=== PATIENT | female | born 1955 | race Caucasian/White ===

== ENCOUNTER 2020-05-14 13:28 | Outpatient (CLI) | payer SELFPAY ==
--- NOTE | 2020-05-15 14:46 | ONC CON_ITS ---
Dr. Blake New Patient Note Patient: Yue Moran Unit #: [id number]: 1955 Dicatated By: Eriberto Blake M.D.Date of Visit: May 14, 2020 Onc MED New Patient/Consult Referring Physician: Dr. Romana Robb M.D. History of Present Illness: Ms. Yue Moran, is a 65-year-old female who first noticed mass in her left breast in August 2019 and said did not pay much attention to it as she was moving from [place] to [place] and in November 2019 she felt mass in her left breast again and decided to get help and underwent mammogram in January 2020 which showed BI-RADS 4 abnormality, for which on March 20, 2020 she underwent ultrasound-guided left breast biopsy which showed papillary neoplasm ER NC strong staining, CK 5/6- Myerson negative, p63 negative. So pathologist could not tell whether this lesion was benign or malignant from the needle core biopsies so patient was evaluated by Dr. Romana Robb and on April 04, 2020 she underwent ultrasound-guided excisional biopsy of left breast mass and final pathology report came back encapsulated papillary carcinoma breast with invasion, maximum tumor focus of invasive carcinoma was 0.5 cm. Background breast parenchyma demonstrates multifocal area of ductal carcinoma in situ. Invasive carcinoma and DCIS involves inked edge of the specimen focally., pT1b, On April 29, 2020 patient underwent left breast quadrant, lumpectomy with margin evaluation and final pathology report showed no residual encapsulated papillary carcinoma or invasive carcinoma identified margins were clear and 0 out of 15 lymph nodes showed metastatic disease .pN0 Patient is nulliparous and postmenopausal since age 43. Family history significant for history of breast cancer in her sister who at age 58. Patient is a former smoker, take alcohol occasionally.. Denies any nipple discharge, denies any discharge or tenderness around recently done left breast lumpectomy or axillary lymph node dissection. Denies any history of weight loss denies any history of bony pains. Denies any history of jaundice. Past Medical History: Ms. Prater medical history consists of anxiety, depression, and osteoarthritis. Past Surgical History: Ms. Prater surgical/procedural history consists of breast biopsy and left breast lumpectomy. Medications: This patient reports not taking external medications. Allergies: No Known Allergies. Social History: Ms. Moran is single and she is retired. Ms. Moran quit smoking 15 years ago but had smoked for 20 years. She drinks occasionally. Ms. Moran reports the following support systems: lives with spouse, significant other, family, or friends, lives in own house, supportive family/friends willing to assist with needs, and adequate transportation available for expected visits. Her diet consists of regular meals. She indicates her activity level as: regular exercise. Family History: Ms. Moran's mother at age 83: hypertension, and stroke. Ms. Moran's father at age 83: myocardial infarction, and coronary artery disease, and type II diabetes. Ms. Moran has 1 sister who is : breast cancer. Review Of Symptoms: Review of Systems is not available for this patient. Vital Signs: Performed on May 14, 2020 14:10: 0, 30.59 (HIGH), 1.86 sq.m, 64.00 in, 97 %, 67 /min, 18 /min, 133/60 mm(hg), 97.4 F (LOW), and 178.2 lbs (HIGH). Performance Status: 0 - Fully active, able to carry on all predisease activities without restrictions. (ECOG) Physical Examination: ENMT - No mouth sores no thrush, no jaundice, Respiratory - Lungs are clear, Cardiovascular - Regular rate and rhythm of heart, Abdomen - Soft, bowel sounds present, Extremities - No visible edema or rash. Left breast exam shows well-healed surgical scar no discharge noted. Lab/Imaging: Most recent lab results are not available for this patient. 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 With DCIS in the background. pT1b,, grade 1, 0 out of 15 positive lymph nodes pN0, ER 99% positive, NC 99% positive, HER-2/katelynn negative, Ki-67 25% high Plan: Discussed with patient regarding her disease status and further recommendations, patient has stage I, encapsulated papillary carcinoma which is a favorable pathology subtype, with ER NC strongly positive and HER-2/katelynn negative. But Ki-67 was elevated at 25%, so at this point, we will proceed with prognostic profiling with Oncotype DX score and in the meantime, start her on adjuvant therapy with Arimidex 1 mg p.o. daily for 5 years along with vitamin D and calcium supplement all the side effects possible benefits associated with adjuvant hormone therapy were discussed including but not limited to hot flashes, generalized musculoskeletal discomfort, fatigue, emotional changes were mentioned further teaching done by chemotherapy nurse, will obtain approval from her insurance and in the meantime , we will refer her to radiation oncology for evaluation for Left breast postlumpectomy radiation therapy. Patient will return to clinic in 1 month with CBC CMP and by that time will have her Oncotype DX score results back and if it shows low risk, then will continue with Arimidex 1 mg p.o. daily for 5 years on the other hand if it shows high score e.g. high risk then will discuss with patient regarding role of adjuvant chemotherapy followed by hormonal therapy. Patient expressed full understanding and accepted the treatment and plan. As patient has young sister with history of breast cancer we will also consider genetic testing with BRCA 1 and 2 testing. Signed By: Eriberto Blake M.D. <<Signature on File>>
== END 2020-05-14 13:29 | disposition home or self-care (01) ==
LOC: ONCMED 13:43
PROVIDERS: Referring Provider Surgery; Visit Provider Internal Medicine Hematology & Oncology
DX: C50.912 Malignant neoplasm of unspecified site of left female breast (principal); Z17.0 Estrogen receptor positive status [ER+]; F41.9 Anxiety disorder, unspecified; F32.9 Major depressive disorder, single episode, unspecified; M19.90 Unspecified osteoarthritis, unspecified site; Z87.891 Personal history of nicotine dependence; Z80.3 Family history of malignant neoplasm of breast
CPT/HCPCS: 99203

== ENCOUNTER 2020-05-28 13:22 | Outpatient (CLI) | payer SELFPAY ==
--- NOTE | 2020-05-29 10:38 | N.ONRAD NP_ITS ---
Radiation Oncology New Patient Visit Patient: Yue Moran MR#: [id number] : 1955 Age: 65 Sex: Female Dictated by: Dr. Matthew Lee Date of Service: 05/28/2020 Referring Physician(s) : Dr. Romana Robb Primary Site: Lower outer quadrant of left breast Diagnosis: T1aN0 (0/15 lns) encapsulated papillary carcinoma of the breast with invasion. The encapsulated portion of the neoplasm measures 2.8 cm, the largest invasive portion measures 0.5 cm. Status post excisional biopsy ([facility] [place] [facility] 04/04/2020), left breast quadrantectomy and left axillary dissection without sentinel lymph node assessment ([facility] 04/29/2020). Pathology revealed multiple foci of grade 1 invasive carcinoma, the presence of ductal carcinoma in situ, 0/15 involved lymph nodes, ER/OR positive at 99%, HER-2 negative, Ki-67 25%, ultimate margins widely negative, and Oncotype DX score of 0. Armidex initiated 05/2020. Z17.0 - estrogen receptor positive status [er+], Diagnosed 05/14/2020 (active) and C50.912 - malignant neoplasm of unspecified site of left female breast, Diagnosed 05/14/2020 (active). Purpose of Visit: Discuss the role of radiotherapy. History of Present Illness: The patient is a 65-year-old female palpated a non painful mass in her left breast in August 2019. She ultimately sought medical attention and a subsequent mammogram in January 2020 revealed an abnormality in the lower outer quadrant of the left breast. A subsequent biopsy (03/20/2020) revealed papillary neoplasm not otherwise specified, ER/OR strongly staining, CK 5/6, myosin negative, p63 negative. The pathologist recommended an additional excision since papillary carcinoma in situ could not be excluded. On 04/04/2020 Dr. Robb performed an ultrasound-guided excisional biopsy of the lesion in the left breast. Pathology from this revealed encapsulated papillary carcinoma with invasion, the encapsulated portion measured 2.8 cm, multiple foci of grade 1 invasive carcinoma were noted and measured up to 5 mm, the presence of multifocal areas of ductal carcinoma in situ (solid and cribriform type with cancerization of focal lobular units), and both DCIS and invasive carcinoma involved the inked margins. On 04/29/2020 Dr. Robb then performed a left breast lower outer quadrantectomy, left axillary dissection without sentinel lymph node evaluation, and left axillary skin tag excision. Pathology revealed no residual encapsulated papillary carcinoma or invasive carcinoma identified, 15 benign lymph nodes, and a benign compound melanocytic nevus. The patient was referred to Dr. Blake and a subsequent Oncotype DX score was 0. In consultation today, the patient ports that she is healing well, she has no range of motion limitations in her left arm, she has no left arm swelling, and she has no left breast pain. Current Medications: Arimidex. Allergies: No Known Allergies Medical History: - Anxiety, - depression, - osteoarthritis. No history of collagen vascular disease. No previous radiation therapy. Surgical History: Breast biopsy, cyst removed in the back of the head in 2005 and left breast lumpectomy. Family History: Father is at age 83 having experienced coronary artery disease, and myocardial infarction, and type II diabetes. Mother is at age 83 having experienced hypertension, and stroke. Sister is at age 58 having experienced breast cancer. Social History: Last screened on 05/28/2020 - Yes - but has quit for 15 years. Smoked 0.5 packs/day for 20 years (10 pack years). Last screened on 05/28/2020 - Drinks occasionally. Patient indicated access to the following support systems: Adequate transportation available for expected visits, Lives in own house, Lives with spouse, significant other, family, or friends, and Supportive family/friends willing to assist with needs. Patient indicated the following nutritional habits: Regular meals. Patient indicated participation in the following forms of activity: Regular exercise. Current Complaints / Review of Systems: Constitutional - Complains of mild fatigue. Complains of change in weight in which she has gained about 15 lbs. since 2019. Denies lack of appetite, fever and night sweats. Eyes - Denies blurred vision and double vision. ENMT - Complains of tinnitus. Denies dysphagia, ear pain, mouth dryness, stomatitis and altered taste. Neck - Denies neck pain. Integumentary - Denies rash. Breasts - Complains of pain in the left breast and left axilla. Cardiovascular - Denies arrhythmias, chest pain and edema. Respiratory - Denies cough, dyspnea and wheezing. Gastrointestinal - Complains of mild heartburn / dyspepsia which occurs occasionally. Denies abdominal pain, constipation, diarrhea, melena / GI bleeding, nausea and vomiting. Genitourinary (F) - Complains of nocturia occasionally. Denies dysuria, frequency, urgency, vaginal discharge / bleeding and vaginal spotting. Musculoskeletal - Complains of joint pain in the right hand and left knee and muscle weakness occasionally in the right hand. Denies bone pain. Neurologic - Denies dizziness, abnormal gait and headaches. Endocrine - Denies diabetes, hot flashes and thyroid disease. Hematologic/Lymphatic - Denies tender or enlarged lymph nodes.. Vital Signs: Performed on 05/28/2020 1:51 PM BMI - 30.485 kg/m2 (high), Height - 64.00 in, Weight - 177.6 lbs, Temperature - 98.8 f, Pulse - 81, Respiration - 18, O2 Sat - 98 %, Pain - 0 and BP - 122/ 81 mm(hg). Physical Exam: GENERAL:??? The patient is alert, and in no acute distress. HEENT:??? Head is normocephalic. Face is symmetric. External ocular movements are intact. Sclerae and conjunctivae are non erythematous. Oral cavity:??? The uvula flexes midline, and the tongue does not deviate upon protrusion. The oral cavity and visualized oropharynx are without obvious masses. Nares are patent. NECK:??? Trachea is midline.??? Thyroid is not enlarged by palpation.??? There are no masses in the neck.? LYMPH NODES:??? There is no cervical, supraclavicular, or axillary adenopathy bilaterally. LUNGS:??? Clear to auscultation bilaterally. Respiratory movement is unlabored. HEART:??? Regular rate and rhythm. BREASTS:??? The left breast is smaller than the right breast, there is moderate scar retraction in the lower outer quadrant of the left breast, a well-healed surgical scar is appreciated in the lower outer quadrant of the left breast and left axilla. Cosmesis is considered to be favorable on the treated left breast. There is no physical exam findings consistent with a brewing infection within the left breast, and there is no palpable abnormality in the contralateral breast. ABDOMEN:??? Soft, nontender, without palpable mass.??? No hepatosplenomegaly. Performance Status: 0 - Fully active, able to carry on all predisease activities without restrictions. (ECOG) Pathology: Primary, z17.0 - estrogen receptor positive status [er+], Diagnosed 05/14/2020 (active) and Primary, c50.912 - malignant neoplasm of unspecified site of left female breast, Diagnosed 05/14/2020 (active). Imaging: See HPI Pain assessment: This patient???s pain was personally assessed by me. This patient requires no adjustments to pain medications at this time. Potential Radiation Treatment Side Effects to the breast: The potential side effects associated with radiation treatment listed below were discussed in significant detail with the patient. Risks and side effects related with Radiation Therapy to the Breast: Likely (these side effects occur in 10% or more of patients): Reddening of the skin during treatment and for several weeks following treatment Tanning of the skin lasting months and may be permanent Slightly smaller breast size or change in the way the breast looks Tiredness and weakness during treatment and for several weeks following treatment Swelling of the breast Peeling of the skin in the area treated with radiation Mild pain at the site of radiation treatment requiring over the counter pain relievers Less Likely (these side effects occur in 3-9% of patients): Soreness or tightness in muscles of the chest wall under the treated breast Severe pain at the site of radiation requiring prescription pain relievers Rare but serious (these side effects occur in less than 3% of patients): Cough Difficulty breathing Inflammation of the heart muscle Rib fracture Slight increase in risk for heart disease for patients with cancer in the left breast Risk of developing another cancer Impression/Plan: The patient is a 65-year-old female with a new diagnosis of T1aN0 (0/15 lns) encapsulated papillary carcinoma with invasion of the lower outer quadrant of the left breast. She has been treated with breast conservation therapy which includes a left breast quadrantectomy, and full axillary dissection without sentinel lymph node assessment which revealed 15 benign lymph nodes (Dr Robb). Ultimate postsurgical margins were widely negative, the tumor is ER/OR strongly positive, HER-2 negative, Ki-67 was 25%, Oncotype DX score was 0. The patient has been prescribed endocrine therapy by Dr. Blake. We discussed the treatment goals of radiotherapy, prognosis with and without radiation therapy, radiation treatment logistics, and potential acute and late side effects in detail as described above. The patient verbalized understanding of the risks/benefits of radiotherapy and the patient has agreed to proceed as recommended. I plan to provide a total dose of 42.56 Gy in 16 fractions to the left breast using a deep inspiration breath-hold technique. Given the widely negative surgical margins, a quadrantectomy boost is unnecessary. Per the patient's request secondary to procuring medical insurance, we will begin treatment planning in 3 weeks. The patient has no current evidence of left arm lymphedema and she has a favorable cosmetic result from her breast surgeries. Signed by: Matthew Lee MD 05/29/2020 10:36:25 AM <<Signature on File>> Time spent with patient in face to face contact: 60 minutes. All questions were answered to the patient???s satisfaction. CPT Code: CPT Code:
== END 2020-05-28 13:23 | disposition home or self-care (01) ==
LOC: ONCMED 13:29
PROVIDERS: Visit Provider Radiology Radiation Oncology
DX: C50.512 Malignant neoplasm of lower-outer quadrant of left female breast (principal); Z17.0 Estrogen receptor positive status [ER+]; Z79.811 Long term (current) use of aromatase inhibitors; Z87.891 Personal history of nicotine dependence; Z98.890 Other specified postprocedural states
CPT/HCPCS: 99215

== ENCOUNTER 2020-07-14 05:37 | Outpatient (RCR) | payer SELFPAY ==
--- NOTE | 2020-06-18 | CT_ITS ---
Radiation Therapy Planning CT images; total exam DLP: 509.77 mGy-cm MTDD
--- NOTE | 2020-06-24 16:29 | ONCRAD TMN_ITS ---
Radiation Oncology Weekly Treatment Management Patient: Luisa Turner MR#: [id number] : 1955 Age: 65 Sex: Female Dictated by: Dr. Matthew Lee Date of Service: 06/24/2020 Referring Physician(s) : Dr. Romana Robb Diagnosis: T1aN0 (0/15 lns) encapsulated papillary carcinoma with invasion of the lower outer quadrant of the left breast. She has been treated with breast conservation therapy which included a left breast quadrantectomy, and full axillary dissection without sentinel lymph node assessment which revealed 15 benign lymph nodes (Dr Robb 04/29/2020). Ultimate postsurgical margins were widely negative, the tumor is ER/IL strongly positive, HER-2 negative, Ki-67 was 25%, Oncotype DX score was 0. Arimidex was initiated on 05/[address] Alaniz. Treatment plan: 42.56 Gy in 16 fractions to the left breast using a deep inspiration breath-hold technique. Given the widely negative surgical margins, a quadrantectomy boost is unnecessary. Radiotherapy to date: Course: [facility] 2019, Treatment Site: L Breast 16FX, Ref. ID: [id number], Energy: 6X, Dose/Fx (cGy): 266, #Fx: , Dose Correction (cGy): 0, Total Dose (cGy): 266, Start Date: 06/24/2020, Elapsed Days: 0 Reason for visit: The patient is being seen today as part of their regularly scheduled weekly on treatment visits to assess for acute toxicities from radiotherapy. Interim History: She has no complaints. Current Medications: Arimidex. Allergies: No Known Allergies Vital Signs: Performed on 06/24/2020 4:15 PM BMI - 30.622 kg/m2 (high), Height - 64.00 in, Weight - 178.4 lbs, Temperature - 97.6 f, Pulse - 61, Respiration - 18, O2 Sat - 97 %, Pain - 0, Fatigue - 0 and BP - 136/ 80 mm(hg). Physical Exam: Appears stable, no skin erythema or desquamation. Performance Status: 0 - Fully active, able to carry on all predisease activities without restrictions. (ECOG) Lab: None pending in Radiation Oncology. Imaging: Radiation therapy imaging related to accurate target localization (i.e. KV, MV and CBCT) was reviewed. Appropriate changes, if any, were made to ensure treatment accuracy. Plan: The patient is tolerating therapy reasonably well. Radiotherapy will continue as planned. CPT: 82024 Signed by: Dr. Matthew Lee 06/24/2020 4:28:01 PM
--- NOTE | 2020-07-01 13:36 | ONCRAD TMN_ITS ---
Radiation Oncology Weekly Treatment Management Patient: Luisa Turner MR#: [id number] : 1955 Age: 65 Sex: Female Dictated by: Dr. Matthew Lee Date of Service: 07/01/2020 Referring Physician(s) : Dr. Romana Robb Diagnosis: T1aN0 (0/15 lns) encapsulated papillary carcinoma with invasion of the lower outer quadrant of the left breast. She has been treated with breast conservation therapy which included a left breast quadrantectomy, and full axillary dissection without sentinel lymph node assessment which revealed 15 benign lymph nodes (Dr Robb 04/29/2020). Ultimate postsurgical margins were widely negative, the tumor is ER/MO strongly positive, HER-2 negative, Ki-67 was 25%, Oncotype DX score was 0. Arimidex was initiated on 05/[address] Alaniz. Treatment plan: 42.56 Gy in 16 fractions to the left breast using a deep inspiration breath-hold technique. Given the widely negative surgical margins, a quadrantectomy boost is unnecessary. Radiotherapy to date: Course: [facility] 2019, Site: L Breast 16FX, Ref. ID: [id number], Energy: 6X, Dose/Fx (cGy): 266, #Fx: , Dose Correction (cGy): 0, Total Dose (cGy): 1,596, Start Date: 06/24/2020, Elapsed Days: 7 Reason for visit: The patient is being seen today as part of their regularly scheduled weekly on treatment visits to assess for acute toxicities from radiotherapy. Interim History: The patient reports no acute side effects from treatment thus far. She has occasional sharp pains in her treated left breast which self resolved. He continues to have night sweats from endocrine therapy. Current Medications: Arimidex. Allergies: No Known Allergies Current Complaints/Review of Systems: Constitutional - Complains of night sweats occasional early mornings. Denies lack of appetite, fatigue, fever, rigors / chills and change in weight. Integumentary - Denies bruising, dry skin, rash and urticaria. Breasts - Complains of pain left breast off and on, sharp pains that are short in duration. Denies breast masses, nipple discharge and nipple inversion. Vital Signs: Performed on 07/01/2020 1:15 PM BMI - 30.76 kg/m2 (high), Height - 64.00 in, Weight - 179.2 lbs, Temperature - 98.9 f, Pulse - 78, Respiration - 17, O2 Sat - 97 %, Pain - 0, Fatigue - 5 and BP - 118/ 69 mm(hg). Physical Exam: Appears stable, no skin erythema or desquamation. Performance Status: 0 - Fully active, able to carry on all predisease activities without restrictions. (ECOG) Lab: None pending in Radiation Oncology. Imaging: Radiation therapy imaging related to accurate target localization (i.e. KV, MV and CBCT) was reviewed. Appropriate changes, if any, were made to ensure treatment accuracy. Plan: The patient is tolerating therapy reasonably well. Radiotherapy will continue as planned. CPT: 41540 Signed by: Dr. Matthew Lee 07/01/2020 1:36:19 PM
--- NOTE | 2020-07-08 16:11 | ONCRAD TMN_ITS ---
Radiation Oncology Weekly Treatment Management Patient: Luisa Turner MR#: [id number] : 1955 Age: 65 Sex: Female Dictated by: Dr. Matthew Lee Date of Service: 07/08/2020 Referring Physician(s) : Dr. 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 She has been treated with breast conservation therapy which included a left breast quadrantectomy, and full axillary dissection without sentinel lymph node assessment which revealed 15 benign lymph nodes (Dr Robb 04/29/2020). Ultimate postsurgical margins were widely negative, the tumor is ER/WV strongly positive, HER-2 negative, Ki-67 was 25%, Oncotype DX score was 0. Arimidex was initiated on 05/[address] Alaniz. Treatment plan: 42.56 Gy in 16 fractions to the left breast using a deep inspiration breath-hold technique. Given the widely negative surgical margins, a quadrantectomy boost is unnecessary. Radiotherapy to date: Course: [facility] 2019, Treatment Site: L Breast 16FX, Ref. ID: [id number], Energy: 6X, Dose/Fx (cGy): 266, #Fx: , Dose Correction (cGy): 0, Total Dose (cGy): 2,660, Start Date: 06/24/2020, Elapsed Days: 14 Reason for visit: The patient is being seen today as part of their regularly scheduled weekly on treatment visits to assess for acute toxicities from radiotherapy. Interim History: The patient reports no current skin irritation, she has mild fatigue, and occasional sharp shooting pains in the left breast which self resolve. Current Medications: Arimidex. Allergies: No Known Allergies Current Complaints/Review of Systems: Constitutional - Complains of mild fatigue. Denies lack of appetite, fever and night sweats. ENMT - Denies dysphagia. Integumentary - Has no redness to the left breast or axilla. Breasts - Complains of pain in the left breast occasionally that is a sharp shooting pain. Cardiovascular - Denies chest pain and edema. Respiratory - Denies cough, dyspnea and wheezing. Vital Signs: Performed on 07/08/2020 1:31 PM BMI - 30.828 kg/m2 (high), Height - 64.00 in, Weight - 179.6 lbs, Temperature - 98.1 f, Pulse - 66, Respiration - 18, O2 Sat - 96 %, Pain - 0 and BP - 133/ 73 mm(hg). Physical Exam: There is no skin erythema within the left axilla or left breast. Lungs are clear to auscultation bilaterally. Performance Status: 0 - Fully active, able to carry on all predisease activities without restrictions. (ECOG) Lab: None pending in Radiation Oncology. Imaging: Radiation therapy imaging related to accurate target localization (i.e. KV, MV and CBCT) was reviewed. Appropriate changes, if any, were made to ensure treatment accuracy. Plan: The patient is tolerating therapy reasonably well. Radiotherapy will continue as planned. CPT: 62392 Signed by: Dr. Matthew Lee 07/08/2020 4:11:02 PM
== END 2020-07-14 23:59 | disposition home or self-care (01) ==
LOC: ONCMED 05:37
PROVIDERS: Visit Provider Radiology Radiation Oncology
DX: Z51.0 Encounter for antineoplastic radiation therapy (principal); C50.512 Malignant neoplasm of lower-outer quadrant of left female breast; Z17.0 Estrogen receptor positive status [ER+]; Z79.811 Long term (current) use of aromatase inhibitors
CPT/HCPCS: 77280; 77295; 77300; 77334; 77336; 77412; 77417

== ENCOUNTER 2020-08-13 05:33 | Outpatient (RCR) | payer SELFPAY ==
--- NOTE | 2020-07-15 15:55 | ONCRAD TMN_ITS ---
Radiation Oncology Weekly Treatment Management Patient: Luisa Turner MR#: [id number] : 1955 Age: 65 Sex: Female Dictated by: Dr. Matthew Lee Date of Service: 07/15/2020 Referring Physician(s) : Dr. 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 She has been treated with breast conservation therapy which included a left breast quadrantectomy, and full axillary dissection without sentinel lymph node assessment which revealed 15 benign lymph nodes (Dr Robb 04/29/2020). Ultimate postsurgical margins were widely negative, the tumor is ER/WA strongly positive, HER-2 negative, Ki-67 was 25%, Oncotype DX score was 0. Arimidex was initiated on 05/[address] Alaniz. Treatment plan: 42.56 Gy in 16 fractions to the left breast. Given the widely negative surgical margins, a quadrantectomy boost is unnecessary. Radiotherapy to date: Course: [facility] 2019, Treatment Site: L Breast 16FX, Ref. ID: [id number], Energy: 6X, Dose/Fx (cGy): 266, #Fx: 15 / 16, Dose Correction (cGy): 0, Total Dose (cGy): 3,990, Start Date: 06/24/2020, Elapsed Days: 21 Reason for visit: The patient is being seen today as part of their regularly scheduled weekly on treatment visits to assess for acute toxicities from radiotherapy. Interim History: The patient reports sharp occasional pains to her left breast. Aside from that, she has no complaints. Current Medications: Arimidex. Allergies: No Known Allergies Current Complaints/Review of Systems: Constitutional - Complains of lack of appetite off and on. Complains of mild fatigue. Complains of night sweats which occur occasionally. Denies fever. ENMT - . Integumentary - Has no redness to left breast. Breasts - Complains of pain in the left breast which is a quick sharp pain that comes and goes. Cardiovascular - Denies chest pain. Respiratory - Denies cough, dyspnea and wheezing. Vital Signs: Performed on 07/15/2020 1:28 PM BMI - 30.931 kg/m2 (high), Height - 64.00 in, Weight - 180.2 lbs, Temperature - 98.6 f, Pulse - 66, Respiration - 16, O2 Sat - 96 %, Pain - 0 and BP - 132/ 67 mm(hg). Physical Exam: Moderate erythema is appreciated. Performance Status: 0 - Fully active, able to carry on all predisease activities without restrictions. (ECOG) Lab: None pending in Radiation Oncology. Imaging: Radiation therapy imaging related to accurate target localization (i.e. KV, MV and CBCT) was reviewed. Appropriate changes, if any, were made to ensure treatment accuracy. Plan: The patient is tolerating therapy reasonably well. Radiotherapy will continue as planned. CPT: 22768 Signed by: Dr. Matthew Lee 07/15/2020 3:52:47 PM
[2020-08-13 14:19] LABS: Basophils % 0.5 %; Eosinophils # 0.2 10^3/uL (0.0-0.8); Eosinophils % 2.3 %; Hematocrit 48.8 % (37.0-47.0); Hemoglobin 15.4 g/dL (11.5-15.3); Lymphocytes % 31.3 %; Mean Corpuscular HGB Conc 31.6 g/dL (30.0-36.0); Mean Corpuscular Hemoglobin 29.8 pg (28.0-34.0); Mean Corpuscular Volume 94.6 fL (81-99); Mean Platelet Volume 10.6 fL (7.4-10.4); Monocytes # 0.6 10^3/uL (0.2-0.9); Monocytes % 9.3 %; Neutrophils # 3.66 10^3/uL (1.8-7.7); Neutrophils % 56.4 %; Nucleated Red Blood Cells % 0 %; Platelet Count 239 10^3/cmm (130-400); Red Blood Count 5.16 10^6/uL (4.1-5.3); Red Cell Distribution Width 12.1 % (12.1-15.1); White Blood Count 6.5 10^3/uL (4.0-10.0)
[2020-08-13 14:22] LABS: Alanine Aminotransferase 44 U/L (0-33); Albumin Level 4.4 g/dL (3.5-5.2); Alkaline Phosphatase 85 IU/L (35-105); Anion Gap 13.6 (5-19); Aspartate Amino Transferase 33 U/L (0-32); Blood Urea Nitrogen 12 mg/dL (8-23); Carbon Dioxide 27 mmol/L (22-29); Chloride 102 mmol/L (98-107); Globulin 2.7 g/dL (1.3-4.6); Glomerular Filtration Rate 84.5 mL/min (90-130); Glucose 97 mg/dL (65-115); Osmolality Calculated 286 mOsm/kg (285-295); Potassium 4.6 mmol/L (3.5-5.1); Sodium 138 mmol/L (136-145); Total Bilirubin 0.3 mg/dL (0.15-1.2); Total Protein 7.1 g/dL (6.6-8.7)
--- NOTE | 2020-08-13 15:47 | ONC FU_ITS ---
Dr. Blake follow up note Patient: Yue Mroan Unit #: [id number]: 1955 Dicatated By: Eriberto Blake M.D.Date of Visit:Aug 13, 2020 Onc Med Follow-up/Prog Note History of Present Illness: Ms. Yue Moran, is a 65-year-old female who first noticed mass in her left breast in August 2019 and said did not pay much attention to it as she was moving from [facility] to [place] and in November 2019 she felt mass in her left breast again and decided to get help and underwent mammogram in January 2020 which showed BI-RADS 4 abnormality, for which on March 20, 2020 she underwent ultrasound-guided left breast biopsy which showed papillary neoplasm ER AK strong staining, CK 5/6- Myerson negative, p63 negative. So pathologist could not tell whether this lesion was benign or malignant from the needle core biopsies so patient was evaluated by Dr. Romana Robb and on April 04, 2020 she underwent ultrasound-guided excisional biopsy of left breast mass and final pathology report came back encapsulated papillary carcinoma breast with invasion, maximum tumor focus of invasive carcinoma was 0.5 cm. Background breast parenchyma demonstrates multifocal area of ductal carcinoma in situ. Invasive carcinoma and DCIS involves inked edge of the specimen focally., pT1b, On April 29, 2020 patient underwent left breast quadrant, lumpectomy with margin evaluation and final pathology report showed no residual encapsulated papillary carcinoma or invasive carcinoma identified margins were clear and 0 out of 15 lymph nodes showed metastatic disease .pN0 Oncotype DX done on May 27, 2020 showed recurrence score 0, risk of distant recurrence at 9 years about 3% with aromatase inhibitor and no role of chemotherapy. completed postlumpectomy left breast radiation therapy on July 16, 2020 Started on Arimidex 1 mg p.o. daily For 5 years along with vitamin D and calcium supplement on May 14, 2020 Patient is nulliparous and postmenopausal since age 43. Family history significant for history of breast cancer in her sister who at age 58. Patient is a former smoker, take alcohol occasionally.. Denies any nipple discharge, denies any discharge or tenderness around recently done left breast lumpectomy or axillary lymph node dissection. Denies any history of weight loss denies any history of bony pains. Denies any history of jaundice. Came for follow-up, denies any specific complaints, no fever chills, no nausea or vomiting, no diarrhea constipation, patient tolerated postlumpectomy radiation therapy to her left breast without any problem, tolerating Arimidex well but with expected side effect e.g. occasionally hot flashes Medications: Arimidex 1 Tablet (of 1 mg) Oral daily Allergies: No Known Allergies. Review of Systems: Review of Systems is not available for this patient. Vital Signs: Performed on Aug 13, 2020 15:02 Height - 64.00 in Weight - 177.2 lbs (LOW) BSA - 1.86 sq.m BMI - 30.42 (HIGH) Temperature - 99.0 F (HIGH) Pulse - 91 /min Respiration - 18 /min BP - 132/72 mm(hg) O2 Sat - 97 % Pain - 0 Performance Status: 0 - Fully active, able to carry on all predisease activities without restrictions. (ECOG) Physical Examination: Respiratory - Lungs are clear, Cardiovascular - Regular rate and rhythm of heart, Gastrointestinal - Soft, bowel sounds present, Extremities - No visible edema. Lab/Imaging: Most recent lab results are not available for this patient. 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 With DCIS in the background. pT1b,, grade 1, 0 out of 15 positive lymph nodes pN0, Oncotype DX score was 0, BRCA 1 and 2 was not tested as patient is self-pay and she declined ER 99% positive, AK 99% positive, HER-2/katelynn negative, Ki-67 25% high Started on Arimidex 1 mg p.o. daily for 5 years along with vitamin D/calcium on May 14, 2020 Completed postlumpectomy left breast radiation therapy on July 16, 2020 Plan: Discussed with patient regarding her labs white blood count 6.5 hemoglobin 15.4 hematocrit 48.8 platelets 239,000 CMP within normal limits Clinically, she is doing well with no new signs symptoms, tolerating Arimidex well but with expected side effects e.g. occasionally hot flashes. She has completed postlumpectomy radiation therapy to the left breast without any problem.She will continue with Arimidex 1 mg p.o. daily along with vitamin D and calcium for total 5 years. Return to clinic in 4 months for evaluation. Signed By: Eriberto Blake M.D. <<Signature on File>>
== END 2020-08-13 23:59 | disposition home or self-care (01) ==
LOC: ONCMED 05:33
PROVIDERS: Visit Provider Internal Medicine Hematology & Oncology
DX: Z51.0 Encounter for antineoplastic radiation therapy (principal); C50.512 Malignant neoplasm of lower-outer quadrant of left female breast; Z17.0 Estrogen receptor positive status [ER+]; L58.0 Acute radiodermatitis; Y84.2 Radiological procedure and radiotherapy as the cause of abnormal reaction of the patient, or of later complication, without mention of misadventure at the time of the procedure; Z92.3 Personal history of irradiation; Z79.811 Long term (current) use of aromatase inhibitors
CPT/HCPCS: 77336; 77412; 77417; 80053; 85025

== ENCOUNTER 2020-11-20 13:26 | Outpatient (CLI) | payer SELFPAY ==
--- NOTE | 2020-11-20 14:56 | ONC FU_ITS ---
Dr. Blake follow up note Patient: Yue Moran Unit #: [id number]: 1955 Dicatated By: Eriberto Blake M.D.Date of Visit:Nov 20, 2020 Onc Med Follow-up/Prog Note History of Present Illness: Ms. Yue Moran, is a 65-year-old female who first noticed mass in her left breast in August 2019 and said did not pay much attention to it as she was moving from [facility] to [place] and in November 2019 she felt mass in her left breast again and decided to get help and underwent mammogram in January 2020 which showed BI-RADS 4 abnormality, for which on March 20, 2020 she underwent ultrasound-guided left breast biopsy which showed papillary neoplasm ER KS strong staining, CK 5/6- Myerson negative, p63 negative. So pathologist could not tell whether this lesion was benign or malignant from the needle core biopsies so patient was evaluated by Dr. Romana Robb and on April 04, 2020 she underwent ultrasound-guided excisional biopsy of left breast mass and final pathology report came back encapsulated papillary carcinoma breast with invasion, maximum tumor focus of invasive carcinoma was 0.5 cm. Background breast parenchyma demonstrates multifocal area of ductal carcinoma in situ. Invasive carcinoma and DCIS involves inked edge of the specimen focally., pT1b, On April 29, 2020 patient underwent left breast quadrant, lumpectomy with margin evaluation and final pathology report showed no residual encapsulated papillary carcinoma or invasive carcinoma identified margins were clear and 0 out of 15 lymph nodes showed metastatic disease .pN0 Oncotype DX done on May 27, 2020 showed recurrence score 0, risk of distant recurrence at 9 years about 3% with aromatase inhibitor and no role of chemotherapy. completed postlumpectomy left breast radiation therapy on July 16, 2020 Started on Arimidex 1 mg p.o. daily For 5 years along with vitamin D and calcium supplement on May 14, 2020 Patient is nulliparous and postmenopausal since age 43. Family history significant for history of breast cancer in her sister who at age 58. Patient is a former smoker, take alcohol occasionally.. Denies any nipple discharge, denies any discharge or tenderness around recently done left breast lumpectomy or axillary lymph node dissection. Denies any history of weight loss denies any history of bony pains. Denies any history of jaundice. Completed post left breast lumpectomy radiation therapy on July 16, 2020. Came for follow-up, denies any specific complaints, no fever chills, no nausea or vomiting, no diarrhea or constipation, occasionally hot flashes otherwise tolerating Arimidex well along with vitamin D and calcium supplement. Patient has completed post left breast lumpectomy radiation therapy in July 2020 Medications: Arimidex 1 Tablet (of 1 mg) Oral daily Allergies: No Known Allergies. Review of Systems: Review of Systems is not available for this patient. Vital Signs: Performed on Nov 20, 2020 13:52 Height - 64.00 in Weight - 181.2 lbs (HIGH) BSA - 1.88 sq.m BMI - 31.10 (HIGH) Temperature - 98.1 F (LOW) Pulse - 77 /min Respiration - 18 /min BP - 149/65 mm(hg) (HIGH) O2 Sat - 98 % Pain - 0 Performance Status: 0 - Fully active, able to carry on all predisease activities without restrictions. (ECOG) Physical Examination: Respiratory - Lungs are clear to auscultation, Cardiovascular - Regular rate and rhythm of heart, Gastrointestinal - Soft, bowel sounds present, Extremities - No visible edema. Lab/Imaging: Test performed on Aug 13, 2020 13:50 Sodium 138 mmol/L Potassium 4.6 mmol/L Chloride 102 mmol/L CO2 27 mmol/L Anion Gap 13.6 BUN 12 mg/dL Creatinine 0.7 mg/dL Cr Clearance (Est) 104.38 mL/min eGFR 84.5 mL/min Glucose 97 mg/dL Osmolality - Calculated 286 mOsm/kg Calcium 10.0 mg/dL Protein, Total 7.1 g/dL Albumin 4.4 g/dL Globulin 2.7 g/dL Bilirubin, Total 0.3 mg/dL ALT (SGPT) 44 U/L AST (SGOT) 33 U/L Alkaline Phosphatase 85 IU/L WBC 6.5 10 3/uL RBC 5.16 10 6/uL HGB 15.4 g/dL HCT 48.8 % MCV 94.6 fL MCH 29.8 pg MCHC 31.6 g/dL RDW 12.1 % Platelet Count 239 10 3/cmm MPV 10.6 fL Neutrophils 3.66 10 3/uL Lymphocytes 2.0 10 3/uL Monocytes 0.6 10 3/uL Eosinophils 0.2 10 3/uL Basophils 0.0 10 3/uL Neutrophil % 56.4 % Lymphocyte % 31.3 % Monocyte % 9.3 % Eosinophil % 2.3 % Basophils % 0.5 % NRBC % 0 % Impression: Encapsulated papillary carcinoma of left breast status post quadrant lumpectomy with left axillary lymph node dissection done on April 04, 2020 and reexcision surgery for positive surgical margin done on April 29, 2020 which showed no evidence of residual disease so final pathology report showed encapsulated papillary carcinoma breast with invasion, 0.5 cm invasive focus. With DCIS in the background. pT1b,, grade 1, 0 out of 15 positive lymph nodes pN0, Oncotype DX score was 0, BRCA 1 and 2 was not tested as patient is self-pay and she declined ER 99% positive, KS 99% positive, HER-2/katelynn negative, Ki-67 25% high Started on Arimidex 1 mg p.o. daily for 5 years along with vitamin D/calcium on May 14, 2020 Completed postlumpectomy left breast radiation therapy on July 16, 2020 Plan: Discussed with patient regarding her disease status, question concerns, patient is tolerating Arimidex well with expected side effects like occasionally hot flashes. She has no signs suggestive of recurrence of disease so we will continue with same and then she will return to clinic in 4 months with CBC CMP and a follow-up mammogram Signed By: Eriberto Blake M.D. <<Signature on File>>
== END 2020-11-20 13:27 | disposition home or self-care (01) ==
LOC: ONCMED 13:30
PROVIDERS: Visit Provider Internal Medicine Hematology & Oncology
DX: C50.912 Malignant neoplasm of unspecified site of left female breast (principal); Z17.0 Estrogen receptor positive status [ER+]; Z79.811 Long term (current) use of aromatase inhibitors
CPT/HCPCS: 99214

== ENCOUNTER 2021-03-17 10:10 | Outpatient (CLI) | payer OTHER, SELFPAY ==
--- NOTE | 2021-03-17 10:17 | MM_ITS ---
WS: [id number] DIAGNOSTIC BILATERAL DIGITAL MAMMOGRAM WITH CAD HISTORY: HX OF BREAST CA COMPARISON: 03/12/2020 TECHNIQUE: Bilateral craniocaudad, mediolateral oblique, and mediolateral views are submitted. Comput er aided detection utilized. Breast composition: There are scattered areas of fibroglandular density. Postsurgical changes are not ed in the lateral LEFT breast near 3:00. There is distortion of the soft tissue postsurgical clips. P reviously described mass has been removed. No recurrent mass or adenopathy. RIGHT breast is negative. MM/[place] [id number] IMPRESSION: BI-RADS: 2-Benign FOLLOW UP: 1 Year Follow-up
== END 2021-03-17 10:11 | disposition home or self-care (01) ==
LOC: RADSHAW 10:14
PROVIDERS: PCP Family Medicine; Visit Provider Internal Medicine Hematology & Oncology
DX: Z85.3 Personal history of malignant neoplasm of breast (principal)
CPT/HCPCS: 77066

== ENCOUNTER 2021-03-24 05:45 | Outpatient (CLI) | payer OTHER, SELFPAY ==
[2021-03-24 14:07] LABS: Basophils % 0.5 %; Eosinophils # 0.2 10^3/uL (0.0-0.8); Eosinophils % 2.4 %; Hematocrit 48.5 % (37.0-47.0); Hemoglobin 15.6 g/dL (11.5-15.3); Lymphocytes # 1.9 10^3/uL (0.8-4.8); Lymphocytes % 29.3 %; Mean Corpuscular HGB Conc 32.2 g/dL (30.0-36.0); Mean Corpuscular Volume 96.2 fL (81-99); Mean Platelet Volume 10.4 fL (7.4-10.4); Monocytes # 0.6 10^3/uL (0.2-0.9); Monocytes % 9.6 %; Neutrophils # 3.81 10^3/uL (1.8-7.7); Nucleated Red Blood Cells % 0 %; Platelet Count 193 10^3/cmm (130-400); Red Blood Count 5.04 10^6/uL (4.1-5.3); Red Cell Distribution Width 12.5 % (12.1-15.1); White Blood Count 6.6 10^3/uL (4.0-10.0)
[2021-03-24 14:20] LABS: Alanine Aminotransferase 45 U/L (0-33); Albumin Level 4.2 g/dL (3.5-5.2); Alkaline Phosphatase 103 IU/L (35-105); Anion Gap 12.2 (5-19); Aspartate Amino Transferase 31 U/L (0-32); Blood Urea Nitrogen 11 mg/dL (8-23); Calcium 9.5 mg/dL (8.5-10.5); Carbon Dioxide 32 mmol/L (22-29); Chloride 103 mmol/L (98-107); Globulin 2.3 g/dL (1.3-4.6); Glomerular Filtration Rate 84.2 mL/min (90-130); Glucose 116 mg/dL (65-115); Osmolality Calculated 296 mOsm/kg (285-295); Potassium 4.2 mmol/L (3.5-5.1); Sodium 143 mmol/L (136-145); Total Bilirubin 0.3 mg/dL (0.15-1.2); Total Protein 6.5 g/dL (6.6-8.7)
--- NOTE | 2021-03-24 16:55 | ONC FU_ITS ---
Dr. Blake follow up note Patient: Yue Moran Unit #: [id number]: 1955 Dicatated By: Eriberto Blake M.D.Date of Visit:March 24, 2021 Onc Med Follow-up/Prog Note History of Present Illness: Ms. Yue Moran, is a 66-year-old female who first noticed mass in her left breast in August 2019 and said did not pay much attention to it as she was moving from [facility] to [place] and in November 2019 she felt mass in her left breast again and decided to get help and underwent mammogram in January 2020 which showed BI-RADS 4 abnormality, for which on March 20, 2020 she underwent ultrasound-guided left breast biopsy which showed papillary neoplasm ER AK strong staining, CK 5/6- Myerson negative, p63 negative. So pathologist could not tell whether this lesion was benign or malignant from the needle core biopsies so patient was evaluated by Dr. Romana Robb and on April 04, 2020 she underwent ultrasound-guided excisional biopsy of left breast mass and final pathology report came back encapsulated papillary carcinoma breast with invasion, maximum tumor focus of invasive carcinoma was 0.5 cm. Background breast parenchyma demonstrates multifocal area of ductal carcinoma in situ. Invasive carcinoma and DCIS involves inked edge of the specimen focally., pT1b, On April 29, 2020 patient underwent left breast quadrant, lumpectomy with margin evaluation and final pathology report showed no residual encapsulated papillary carcinoma or invasive carcinoma identified margins were clear and 0 out of 15 lymph nodes showed metastatic disease .pN0 Oncotype DX done on May 27, 2020 showed recurrence score 0, risk of distant recurrence at 9 years about 3% with aromatase inhibitor and no role of chemotherapy. completed postlumpectomy left breast radiation therapy on July 16, 2020 Started on Arimidex 1 mg p.o. daily For 5 years along with vitamin D and calcium supplement on May 14, 2020 Patient is nulliparous and postmenopausal since age 43. Family history significant for history of breast cancer in her sister who at age 58. Patient is a former smoker, take alcohol occasionally.. Denies any nipple discharge, denies any discharge or tenderness around recently done left breast lumpectomy or axillary lymph node dissection. Denies any history of weight loss denies any history of bony pains. Denies any history of jaundice. Completed post left breast lumpectomy radiation therapy on July 16, 2020. Came for follow-up, denies any specific complaint except chronic pain in her hands and left knee due to arthritis no new bony pains otherwise, tolerating Arimidex well along with vitamin D and calcium supplement, no fever chills, no nausea or vomiting, no diarrhea or constipation Medications: Arimidex 1 Tablet (of 1 mg) Oral daily Allergies: No Known Allergies. Review of Systems: Review of Systems is not available for this patient. Vital Signs: Performed on March 24, 2021 15:52 Height - 64.00 in Weight - 181.8 lbs (HIGH) BSA - 1.88 sq.m BMI - 31.21 (HIGH) Temperature - 97.1 F (LOW) Pulse - 70 /min Respiration - 18 /min BP - 146/59 mm(hg) (HIGH) O2 Sat - 98 % Pain - 0 Fatigue - 0 Performance Status: 0 - Fully active, able to carry on all predisease activities without restrictions. (ECOG) Physical Examination: Respiratory - Lungs are clear to auscultation, Cardiovascular - Regular rate and rhythm of heart, Gastrointestinal - Soft, bowel sounds present, Extremities - No visible edema. Lab/Imaging: Most recent lab results are not available for this patient. 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 With DCIS in the background. pT1b,, grade 1, 0 out of 15 positive lymph nodes pN0, Oncotype DX score was 0, BRCA 1 and 2 was not tested as patient is self-pay and she declined ER 99% positive, AK 99% positive, HER-2/katelynn negative, Ki-67 25% high Started on Arimidex 1 mg p.o. daily for 5 years along with vitamin D/calcium on May 14, 2020 Completed postlumpectomy left breast radiation therapy on July 16, 2020, Follow-up mammogram done on March 17, 2021 shows BI-RADS 2, benign Plan: Discussed with patient regarding her labs white blood count 6.6 hemoglobin 15.6 hematocrit 48.5 platelets 193,000 CMP within normal limits follow-up mammogram done on March 17, 2021 showed BI-RADS 2, benign Clinically, patient doing well with no new signs symptom suggestive of recurrence of disease, tolerating Arimidex/vitamin D/calcium well, her follow-up mammogram shows no abnormality. We will continue with same and she will return to clinic in 4 months with CBC CMP Signed By: Eriberto Blake M.D. <<Signature on File>>
== END 2021-03-24 05:46 | disposition home or self-care (01) ==
LOC: ONCMED 05:49
PROVIDERS: PCP Family Medicine; Visit Provider Internal Medicine Hematology & Oncology
DX: C50.812 Malignant neoplasm of overlapping sites of left female breast (principal); Z17.0 Estrogen receptor positive status [ER+]; Z90.12 Acquired absence of left breast and nipple; Z79.811 Long term (current) use of aromatase inhibitors; E55.9 Vitamin D deficiency, unspecified; E83.51 Hypocalcemia; Z79.899 Other long term (current) drug therapy
CPT/HCPCS: 36415; 80053; 85025; 99214

== ENCOUNTER 2021-08-03 12:25 | Outpatient (CLI) | payer OTHER, SELFPAY ==
[2021-08-03 13:17] LABS: Basophils % 0.4 %; Eosinophils # 0.2 10^3/uL (0.0-0.8); Eosinophils % 2.5 %; Hematocrit 44.9 % (37.0-47.0); Hemoglobin 14.5 g/dL (11.5-15.3); Lymphocytes # 2.5 10^3/uL (0.8-4.8); Mean Corpuscular HGB Conc 32.3 g/dL (30.0-36.0); Mean Corpuscular Hemoglobin 30.6 pg (28.0-34.0); Mean Corpuscular Volume 94.7 fl (81-99); Mean Platelet Volume 10.7 fL (7.4-10.4); Monocytes # 0.7 10^3/uL (0.2-0.9); Monocytes % 10.1 %; Neutrophils # 3.82 10^3/uL (1.8-7.7); Neutrophils % 52.9 %; Nucleated Red Blood Cells % 0 %; Platelet Count 185 10^3/cmm (130-400); Red Blood Count 4.74 10^6/uL (4.1-5.3); Red Cell Distribution Width 13.2 % (12.1-15.1); White Blood Count 7.2 10^3/uL (4.0-10.0)
[2021-08-03 13:28] LABS: Alanine Aminotransferase 53 U/L (0-33); Albumin Level 4.3 g/dL (3.5-5.2); Alkaline Phosphatase 97 IU/L (35-105); Anion Gap 10.2 (5-19); Aspartate Amino Transferase 34 U/L (0-32); Blood Urea Nitrogen 10 mg/dL (8-23); Calcium 9.9 mg/dL (8.5-10.5); Carbon Dioxide 31 mmol/L (22-29); Chloride 104 mmol/L (98-107); Globulin 2.5 g/dL (1.3-4.6); Glomerular Filtration Rate 84.2 mL/min (90-130); Glucose 87 mg/dL (65-115); Osmolality Calculated 290 mOsm/kg (285-295); Potassium 4.2 mmol/L (3.5-5.1); Sodium 141 mmol/L (136-145); Total Bilirubin 0.3 mg/dL (0.15-1.2); Total Protein 6.8 g/dL (6.6-8.7)
--- NOTE | 2021-08-03 14:43 | ONC FU_ITS ---
Dr. Blake follow up note Patient: Yue Moran Unit #: [id number]: 1955 Dicatated By: Eriberto Blake M.D.Date of Visit:Aug 03, 2021 Onc Med Follow-up/Prog Note History of Present Illness: Ms. Yue Moran, is a 66-year-old female who first noticed mass in her left breast in August 2019 and said did not pay much attention to it as she was moving from [facility] [place] to [place] and in November 2019 she felt mass in her left breast again and decided to get help and underwent mammogram in January 2020 which showed BI-RADS 4 abnormality, for which on March 20, 2020 she underwent ultrasound-guided left breast biopsy which showed papillary neoplasm ER PA strong staining, CK 5/6- Myerson negative, p63 negative. So pathologist could not tell whether this lesion was benign or malignant from the needle core biopsies so patient was evaluated by Dr. Romana Robb and on April 04, 2020 she underwent ultrasound-guided excisional biopsy of left breast mass and final pathology report came back encapsulated papillary carcinoma breast with invasion, maximum tumor focus of invasive carcinoma was 0.5 cm. Background breast parenchyma demonstrates multifocal area of ductal carcinoma in situ. Invasive carcinoma and DCIS involves inked edge of the specimen focally., pT1b, On April 29, 2020 patient underwent left breast quadrant, lumpectomy with margin evaluation and final pathology report showed no residual encapsulated papillary carcinoma or invasive carcinoma identified margins were clear and 0 out of 15 lymph nodes showed metastatic disease .pN0 Oncotype DX done on May 27, 2020 showed recurrence score 0, risk of distant recurrence at 9 years about 3% with aromatase inhibitor and no role of chemotherapy. completed postlumpectomy left breast radiation therapy on July 16, 2020 Started on Arimidex 1 mg p.o. daily For 5 years along with vitamin D and calcium supplement on May 14, 2020 Patient is nulliparous and postmenopausal since age 43. Family history significant for history of breast cancer in her sister who at age 58. Patient is a former smoker, take alcohol occasionally.. Denies any nipple discharge, denies any discharge or tenderness around recently done left breast lumpectomy or axillary lymph node dissection. Denies any history of weight loss denies any history of bony pains. Denies any history of jaundice. Completed post left breast lumpectomy radiation therapy on July 16, 2020. Came for follow-up, denies any specific complaints, no fever chills, no nausea or vomiting, no diarrhea constipation, no new bony pains, occasionally hot flashes are discomfort in her hands otherwise tolerating Arimidex well along with vitamin D and calcium Medications: Arimidex 1 Tablet (of 1 mg) Oral daily Allergies: No Known Allergies. Review of Systems: Review of Systems is not available for this patient. Vital Signs: Performed on Aug 03, 2021 14:25 Height - 64.00 in Weight - 181.6 lbs (LOW) BSA - 1.88 sq.m BMI - 31.17 (HIGH) Temperature - 97.6 F (LOW) Pulse - 63 /min Respiration - 18 /min BP - 178/90 mm(hg) (HIGH) O2 Sat - 97 % Pain - 0 Fatigue - 5 Performance Status: 0 - Fully active, able to carry on all predisease activities without restrictions. (ECOG) Physical Examination: Respiratory - Lungs are clear to auscultation, Cardiovascular - Regular rate and rhythm of heart, Gastrointestinal - Soft, bowel sounds present, Extremities - No visible edema or rash. Lab/Imaging: Most recent lab results are not available for this patient. 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 With DCIS in the background. pT1b,, grade 1, 0 out of 15 positive lymph nodes pN0, Oncotype DX score was 0, BRCA 1 and 2 was not tested as patient is self-pay and she declined ER 99% positive, PA 99% positive, HER-2/katelynn negative, Ki-67 25% high Started on Arimidex 1 mg p.o. daily for 5 years along with vitamin D/calcium on May 14, 2020 Completed postlumpectomy left breast radiation therapy on July 16, 2020, Follow-up mammogram done on March 17, 2021 shows BI-RADS 2, benign Plan: Discussed with patient regarding her labs white blood count 7.2 hemoglobin 14.5 hematocrit 44.9 platelets 185,000 CMP within normal limit except ALT 53 compared to 45 earlier AST 34, within normal bilirubin and alk phos Clinically, patient doing well with no new signs symptoms just of recurrence of disease her lab work-up is within normal range except mildly elevated transaminases which could be due to fatty infiltration, will continue to monitor she will return to clinic in 6 months with CBC CMP, If follow-up labs shows persistent or progressive transaminitis, will consider work-up, patient will continue with daily Arimidex along with vitamin D and calcium Signed By: Eriberto Blake M.D. <<Signature on File>>
== END 2021-08-03 12:26 | disposition home or self-care (01) ==
LOC: ONCMED 12:27
PROVIDERS: PCP Family Medicine; Visit Provider Internal Medicine Hematology & Oncology
DX: C50.812 Malignant neoplasm of overlapping sites of left female breast (principal); Z17.0 Estrogen receptor positive status [ER+]; Z90.12 Acquired absence of left breast and nipple; Z79.811 Long term (current) use of aromatase inhibitors; E55.9 Vitamin D deficiency, unspecified; Z79.899 Other long term (current) drug therapy
CPT/HCPCS: 36415; 80053; 85025; 99214

== ENCOUNTER 2022-03-09 12:20 | Outpatient (CLI) | payer MEDICARE, SELFPAY ==
[2022-03-09 13:02] LABS: Basophils % 0.3 %; Eosinophils # 0.1 10^3/uL (0.0-0.8); Eosinophils % 1.8 %; Hematocrit 47.4 % (37.0-47.0); Hemoglobin 15.4 g/dL (11.5-15.3); Lymphocytes # 2.3 10^3/uL (0.8-4.8); Lymphocytes % 32.3 %; Mean Corpuscular HGB Conc 32.5 g/dL (30.0-36.0); Mean Corpuscular Hemoglobin 30.3 pg (28.0-34.0); Mean Corpuscular Volume 93.1 fl (81-99); Mean Platelet Volume 10.9 fL (7.4-10.4); Monocytes # 0.7 10^3/uL (0.2-0.9); Monocytes % 9.4 %; Neutrophils # 3.93 10^3/uL (1.8-7.7); Neutrophils % 55.9 %; Nucleated Red Blood Cells % 0 %; Platelet Count 199 10^3/cmm (130-400); Red Blood Count 5.09 10^6/uL (4.1-5.3); Red Cell Distribution Width 12.3 % (12.1-15.1)
[2022-03-09 13:23] LABS: Alanine Aminotransferase 32 U/L (0-33); Albumin Level 4.5 g/dL (3.5-5.2); Alkaline Phosphatase 110 IU/L (35-105); Anion Gap 11.5 (5-19); Aspartate Amino Transferase 28 U/L (0-32); Blood Urea Nitrogen 12 mg/dL (8-23); Calcium 9.2 mg/dL (8.5-10.5); Carbon Dioxide 29 mmol/L (22-29); Chloride 105 mmol/L (98-107); Globulin 2.3 g/dL (1.3-4.6); Glucose 85 mg/dL (65-115); Osmolality Calculated 291 mOsm/kg (285-295); Potassium 4.5 mmol/L (3.5-5.1); Sodium 141 mmol/L (136-145); Total Bilirubin 0.3 mg/dL (0.15-1.2); Total Protein 6.8 g/dL (6.6-8.7)
--- NOTE | 2022-03-10 10:08 | ONC FU_ITS ---
Dr. Blake follow up note Patient: Yue Moran Unit #: [id number]: 1955 Dicatated By: Eriberto Blake M.D.Date of Visit:Mar 09, 2022 Onc Med Follow-up/Prog Note History of Present Illness: Ms. Yue Moran, is a 67-year-old female who first noticed mass in her left breast in August 2019 and said did not pay much attention to it as she was moving from [facility] to [place] and in November 2019 she felt mass in her left breast again and decided to get help and underwent mammogram in January 2020 which showed BI-RADS 4 abnormality, for which on March 20, 2020 she underwent ultrasound-guided left breast biopsy which showed papillary neoplasm ER AL strong staining, CK 5/6- Myerson negative, p63 negative. So pathologist could not tell whether this lesion was benign or malignant from the needle core biopsies so patient was evaluated by Dr. Romana Robb and on April 04, 2020 she underwent ultrasound-guided excisional biopsy of left breast mass and final pathology report came back encapsulated papillary carcinoma breast with invasion, maximum tumor focus of invasive carcinoma was 0.5 cm. Background breast parenchyma demonstrates multifocal area of ductal carcinoma in situ. Invasive carcinoma and DCIS involves inked edge of the specimen focally., pT1b, On April 29, 2020 patient underwent left breast quadrant, lumpectomy with margin evaluation and final pathology report showed no residual encapsulated papillary carcinoma or invasive carcinoma identified margins were clear and 0 out of 15 lymph nodes showed metastatic disease .pN0 Oncotype DX done on May 27, 2020 showed recurrence score 0, risk of distant recurrence at 9 years about 3% with aromatase inhibitor and no role of chemotherapy. completed postlumpectomy left breast radiation therapy on July 16, 2020 Started on Arimidex 1 mg p.o. daily For 5 years along with vitamin D and calcium supplement on May 14, 2020 Patient is nulliparous and postmenopausal since age 43. Family history significant for history of breast cancer in her sister who at age 58. Patient is a former smoker, take alcohol occasionally.. Denies any nipple discharge, denies any discharge or tenderness around recently done left breast lumpectomy or axillary lymph node dissection. Denies any history of weight loss denies any history of bony pains. Denies any history of jaundice. Completed post left breast lumpectomy radiation therapy on July 16, 2020. Came for follow-up, denies any specific complaints, no fever chills, no nausea or vomiting, no diarrhea constipation, no melena hematochezia, no hemoptysis hematemesis, occasionally hot flashes otherwise tolerating Arimidex/vitamin D/calcium well Medications: Arimidex 1 Tablet (of 1 mg) Oral daily Allergies: No Known Allergies. Review of Systems: Review of Systems is not available for this patient. Vital Signs: Performed on Mar 09, 2022 16:13 Height - 64.00 in Weight - 176.6 lbs (LOW) BSA - 1.86 sq.m BMI - 30.31 (HIGH) Temperature - 97.8 F (LOW) Pulse - 73 /min Respiration - 18 /min BP - 148/80 mm(hg) (HIGH) O2 Sat - 98 % Pain - 0 Fatigue - 4 Performance Status: 0 - Fully active, able to carry on all predisease activities without restrictions. (ECOG) Physical Examination: Respiratory - Lungs are clear to auscultation, Cardiovascular - Regular rate and rhythm of heart, Gastrointestinal - Soft, bowel sounds present, Extremities - No visible edema. Lab/Imaging: Most recent lab results are not available for this patient. 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 With DCIS in the background. pT1b,, grade 1, 0 out of 15 positive lymph nodes pN0, Oncotype DX score was 0, BRCA 1 and 2 was not tested as patient is self-pay and she declined ER 99% positive, AL 99% positive, HER-2/katelynn negative, Ki-67 25% high Started on Arimidex 1 mg p.o. daily for 5 years along with vitamin D/calcium on May 14, 2020 Completed postlumpectomy left breast radiation therapy on July 16, 2020, Follow-up mammogram done on March 17, 2021 shows BI-RADS 2, benign Plan: Discussed with patient regarding her labs white blood count 7 hemoglobin 15.4 hematocrit 47.4, platelets 199,000 CMP within normal limits Clinically, patient doing well with no new signs symptom suggestive of recurrence of disease, tolerating Arimidex along with vitamin D/calcium well her lab work-up is within normal range including ALT/AST We will continue with Arimidex/vitamin D/calcium and she will return to clinic in 6 months with follow-up yearly mammogram Signed By: Eriberto Blake M.D. <<Signature on File>>
== END 2022-03-09 12:21 | disposition home or self-care (01) ==
LOC: ONCMED 12:25
PROVIDERS: PCP Family Medicine; Visit Provider Internal Medicine Hematology & Oncology
DX: C50.812 Malignant neoplasm of overlapping sites of left female breast (principal); Z17.0 Estrogen receptor positive status [ER+]; Z79.818 Long term (current) use of other agents affecting estrogen receptors and estrogen levels; E55.9 Vitamin D deficiency, unspecified; Z79.899 Other long term (current) drug therapy; Z92.3 Personal history of irradiation
CPT/HCPCS: 36415; 80053; 85025; 99214

== ENCOUNTER 2022-10-01 08:55 | Oncology outpatient (recurring) (ONCR) | payer MEDICARE, SELFPAY ==
[2022-10-01 09:29] LABS: Basophils % 0.3 %; Eosinophils # 0.1 10^3/uL (0.0-0.8); Hematocrit 50.3 % (37.0-47.0); Hemoglobin 16.3 g/dL (11.5-15.3); Lymphocytes # 1.9 10^3/uL (0.8-4.8); Lymphocytes % 29.2 %; Mean Corpuscular HGB Conc 32.4 g/dL (30.0-36.0); Mean Corpuscular Hemoglobin 30.4 pg (28.0-34.0); Mean Corpuscular Volume 93.7 fl (81-99); Mean Platelet Volume 10.3 fL (7.4-10.4); Monocytes # 0.4 10^3/uL (0.2-0.9); Monocytes % 6.4 %; Neutrophils # 3.95 10^3/uL (1.8-7.7); Neutrophils % 61.6 %; Nucleated Red Blood Cells % 0 %; Platelet Count 198 10^3/cmm (130-400); Red Blood Count 5.37 10^6/uL (4.1-5.3); Red Cell Distribution Width 12.3 % (12.1-15.1); White Blood Count 6.4 10^3/uL (4.0-10.0)
[2022-10-01 09:43] LABS: Alanine Aminotransferase 27 U/L (0-33); Albumin Level 4.3 g/dL (3.5-5.2); Alkaline Phosphatase 121 U/L (35-105); Anion Gap 12.9 (5-19); Aspartate Amino Transferase 22 U/L (0-32); Blood Urea Nitrogen 13 mg/dL (8-23); Calcium 9.7 mg/dL (8.5-10.5); Carbon Dioxide 30 mmol/L (22-29); Chloride 101 mmol/L (98-107); Globulin 2.7 g/dL (1.3-4.6); Glucose 108 mg/dL (65-115); Osmolality Calculated 289 mOsm/kg (285-295); Potassium 4.9 mmol/L (3.5-5.1); Sodium 139 mmol/L (136-145); Total Bilirubin 0.4 mg/dL (0.15-1.2)
[2022-10-10 16:03] LABS: CALR Exon 9 Mutation NOT DETECTED (NOT DETECTED); CSF3R Exon 14/17 Mutation NOT DETECTED (NOT DETECTED); JAK2 Exon 12 Mutation NOT DETECTED (NOT DETECTED); JAK2 V617 Block Specimen ID NG; JAK2 V617 Clinical Indication NG; JAK2 V617 Mutation NOT DETECTED (NOT DETECTED); JAK2 V617 Specimen Source NG; MPL Exon 12 Mutation NOT DETECTED (NOT DETECTED)
== END 2022-10-13 23:59 | disposition home or self-care (01) ==
PROVIDERS: PCP Family Medicine; Visit Provider Internal Medicine Hematology & Oncology
DX: C50.812 Malignant neoplasm of overlapping sites of left female breast (principal); Z17.1 Estrogen receptor negative status [ER-]; D75.1 Secondary polycythemia; Z79.818 Long term (current) use of other agents affecting estrogen receptors and estrogen levels; Z79.899 Other long term (current) drug therapy; Z87.891 Personal history of nicotine dependence; Z92.3 Personal history of irradiation
CPT/HCPCS: 36415; 80053; 81219; 81270; 81339; 81403; 81479; 85025; 99214

== ENCOUNTER 2022-10-26 10:21 | Outpatient (CLI) | payer MEDICARE, SELFPAY ==
--- NOTE | 2022-10-26 10:31 | MM_ITS ---
WS: [id number] DIAGNOSTIC BILATERAL DIGITAL BREAST TOMOSYNTHESIS MAMMOGRAPHY WITH CAD HISTORY: Annual exam., History LEFT breast cancer. COMPARISON: 03/17/2021, 03/12/2020 TECHNIQUE: Bilateral craniocaudad, mediolateral oblique, and mediolateral views are submitted with to mosynthesis and SM. Computer aided detection utilized. Breast composition: There are scattered areas of fibroglandular density. Postsurgical changes of the lumpectomy in the posterior mid LEFT breast. No interval change. No recurrent mass or calcification. No nipple retraction. MM/[place] [id number] IMPRESSION: BI-RADS: 2-Benign FOLLOW UP: 1 Year Follow-up
== END 2022-10-26 10:22 | disposition home or self-care (01) ==
LOC: RAD 10:22
PROVIDERS: PCP Family Medicine; Visit Provider Internal Medicine Hematology & Oncology
DX: Z85.3 Personal history of malignant neoplasm of breast (principal)
CPT/HCPCS: 77062; G0279

== ENCOUNTER 2022-11-19 10:06 | Oncology outpatient (recurring) (ONCR) | payer MEDICARE, SELFPAY ==
[2022-11-19 10:42] LABS: Basophils % 0.3 %; Eosinophils # 0.1 10^3/uL (0.0-0.8); Eosinophils % 1.8 %; Hemoglobin 15.2 g/dL (11.5-15.3); Lymphocytes # 1.9 10^3/uL (0.8-4.8); Lymphocytes % 29.3 %; Mean Corpuscular HGB Conc 31.7 g/dL (30.0-36.0); Mean Corpuscular Hemoglobin 29.8 pg (28.0-34.0); Mean Corpuscular Volume 94.1 fl (81-99); Mean Platelet Volume 10.2 fL (7.4-10.4); Monocytes # 0.5 10^3/uL (0.2-0.9); Monocytes % 7.8 %; Neutrophils # 3.96 10^3/uL (1.8-7.7); Neutrophils % 60.5 %; Nucleated Red Blood Cells % 0 %; Platelet Count 184 10^3/cmm (130-400); Red Cell Distribution Width 12.4 % (12.1-15.1); White Blood Count 6.6 10^3/uL (4.0-10.0)
== END 2022-12-14 23:59 | disposition home or self-care (01) ==
PROVIDERS: PCP Family Medicine; Visit Provider Internal Medicine Hematology & Oncology
DX: C50.812 Malignant neoplasm of overlapping sites of left female breast (principal); Z17.0 Estrogen receptor positive status [ER+]; Z79.818 Long term (current) use of other agents affecting estrogen receptors and estrogen levels; Z79.899 Other long term (current) drug therapy; Z87.891 Personal history of nicotine dependence; Z92.3 Personal history of irradiation; Z78.0 Asymptomatic menopausal state; Z80.3 Family history of malignant neoplasm of breast
CPT/HCPCS: 36415; 85025; 99214

== ENCOUNTER → 2023-04-21 14:45 | Outpatient (BNVA) | payer MEDICARE, SELFPAY | PROVIDERS: PCP Family Medicine; Visit Provider Physician Assistant | DX: M17.12 Unilateral primary osteoarthritis, left knee (principal); M51.36 Other intervertebral disc degeneration, lumbar region; M54.50 Low back pain, unspecified | CPT/HCPCS: 20610; 72110; 99204; J7326 ==

== ENCOUNTER 2023-05-23 15:32 | Outpatient (CLI) | payer MEDICARE, SELFPAY ==
--- NOTE | 2023-05-23 15:30 | XR_ITS ---
WS: [id number] DEXA (DUAL ENERGY X-RAY ABSORPTIOMETRY) Bone mineral density was performed using a Inspherion machine. HISTORY: Hormone Therapy COMPARISON: None available. Lumbar spine BMD (L1-L4): 0.921 g/cm2 T score: -2.2 Z score: -1.0 Total hip BMD: Left: 0.795 g/cm2. T score: -1.7 Z score: -0.8 Right: 0.889 g/cm2. T score: -0.9 Z score: 0.0 10 year probability of a major osteoporotic fracture is 11%. XR/XR DEXA axial skeleton* [id number] IMPRESSION: OSTEOPENIA based upon the WHO classification for females.
== END 2023-05-23 15:33 | disposition home or self-care (01) ==
PROVIDERS: PCP Family Medicine; Visit Provider Internal Medicine Hematology & Oncology
DX: M85.80 Other specified disorders of bone density and structure, unspecified site (principal); Z79.811 Long term (current) use of aromatase inhibitors
CPT/HCPCS: 77080

== ENCOUNTER 2023-05-24 13:00 | Oncology outpatient (recurring) (ONCR) | payer MEDICARE, SELFPAY ==
[2023-05-24 13:16] VITALS: BP 148/81; PULSE 83; RESP 16; TEMP 36.8; O2SAT 98
[2023-05-24 13:47] LABS: Basophils % 0.4 %; Eosinophils # 0.1 10^3/uL (0.0-0.8); Eosinophils % 1.9 %; Hematocrit 47.1 % (37.0-47.0); Hemoglobin 15.2 g/dL (11.5-15.3); Lymphocytes # 2.2 10^3/uL (0.8-4.8); Lymphocytes % 29.8 %; Mean Corpuscular HGB Conc 32.3 g/dL (30.0-36.0); Mean Corpuscular Hemoglobin 29.9 pg (28.0-34.0); Mean Corpuscular Volume 92.7 fl (81-99); Mean Platelet Volume 10.4 fL (7.4-10.4); Monocytes # 0.6 10^3/uL (0.2-0.9); Monocytes % 8.5 %; Neutrophils # 4.28 10^3/uL (1.8-7.7); Nucleated Red Blood Cells % 0 %; Platelet Count 202 10^3/cmm (130-400); Red Blood Count 5.08 10^6/uL (4.1-5.3); Red Cell Distribution Width 12.7 % (12.1-15.1); White Blood Count 7.3 10^3/uL (4.0-10.0)
[2023-05-24 14:02] LABS: Alanine Aminotransferase 29 U/L (0-33); Albumin Level 4.2 g/dL (3.5-5.2); Alkaline Phosphatase 109 U/L (35-105); Anion Gap 13.2 (5-19); Aspartate Amino Transferase 24 U/L (0-32); Blood Urea Nitrogen 11 mg/dL (8-23); Calcium 9.3 mg/dL (8.5-10.5); Carbon Dioxide 26 mmol/L (22-29); Chloride 106 mmol/L (98-107); Globulin 2.6 g/dL (1.3-4.6); Glomerular Filtration Rate 83.7 mL/min (90-130); Glucose 90 mg/dL (65-115); Osmolality Calculated 291 mOsm/kg (285-295); Potassium 4.2 mmol/L (3.5-5.1); Sodium 141 mmol/L (136-145); Total Bilirubin 0.3 mg/dL (0.15-1.2); Total Protein 6.8 g/dL (6.6-8.7)
== END 2023-06-13 23:59 | disposition home or self-care (01) ==
PROVIDERS: PCP Family Medicine; Visit Provider Internal Medicine Hematology & Oncology
DX: C50.812 Malignant neoplasm of overlapping sites of left female breast (principal); Z17.0 Estrogen receptor positive status [ER+]; Z79.818 Long term (current) use of other agents affecting estrogen receptors and estrogen levels; Z79.899 Other long term (current) drug therapy; Z87.891 Personal history of nicotine dependence; Z92.3 Personal history of irradiation; Z78.0 Asymptomatic menopausal state; Z80.3 Family history of malignant neoplasm of breast
CPT/HCPCS: 36415; 80053; 85025; 99214

== ENCOUNTER 2023-11-02 10:45 | Outpatient (CLI) | payer MEDICARE, SELFPAY ==
--- NOTE | 2023-11-02 10:57 | MM_ITS ---
WS: [id number] DIAGNOSTIC BILATERAL DIGITAL BREAST TOMOSYNTHESIS MAMMOGRAPHY WITH CAD HISTORY: HX OF BREAST CA COMPARISON: 10/26/2022 and 03/17/2021 TECHNIQUE: Bilateral craniocaudad, mediolateral oblique, and mediolateral views are submitted with to mosynthesis and SM. Computer aided detection utilized. Breast composition: There are scattered areas of fibroglandular density. Postsurgical lumpectomy site is noted in the posterior LEFT lateral breast. No recurrent mass or suspicious calcifications are id entified within either breast. IMPRESSION: MM/[place] [id number] BI-RADS: 2-Benign FOLLOW UP: 1 Year Follow-up
== END 2023-11-02 10:46 | disposition home or self-care (01) ==
LOC: RAD 10:46
PROVIDERS: PCP Family Medicine; Visit Provider Internal Medicine Hematology & Oncology
DX: Z85.3 Personal history of malignant neoplasm of breast (principal)
CPT/HCPCS: 77062; G0279

== ENCOUNTER 2023-11-23 13:04 | Oncology outpatient (recurring) (ONCR) | payer MEDICARE, SELFPAY ==
[2023-11-23 15:05] LABS: Basophils % 0.3 %; Eosinophils # 0.1 10^3/uL (0.0-0.8); Eosinophils % 1.5 %; Lymphocytes # 2.5 10^3/uL (0.8-4.8); Lymphocytes % 41.8 %; Mean Corpuscular HGB Conc 32.5 g/dL (30-55); Mean Corpuscular Hemoglobin 29.3 pg (27-33); Mean Corpuscular Volume 90.1 fl (85-98); Mean Platelet Volume 9.7 fL (7.4-10.4); Monocytes # 0.6 10^3/uL (0.2-0.9); Monocytes % 9.6 %; Neutrophils # 2.78 10^3/uL (1.8-7.7); Neutrophils % 46.6 %; Nucleated Red Blood Cells % 0 %; Platelet Count 171 10^3/cmm (157-399); Red Blood Count 5.33 10^6/uL (3.85-5.65); Red Cell Distribution Width 13.3 % (12.1-15.1); White Blood Count 5.96 10^3/uL (3.29-11.43)
[2023-11-23 15:34] LABS: Alanine Aminotransferase 30 U/L (0-33); Albumin Level 4.1 g/dL (3.5-5.2); Alkaline Phosphatase 110 U/L (35-105); Anion Gap 11.9 (5-19); Aspartate Amino Transferase 24 U/L (0-32); Blood Urea Nitrogen 12 mg/dL (8-23); Calcium 10.1 mg/dL (8.5-10.5); Carbon Dioxide 30 mmol/L (22-29); Chloride 106 mmol/L (98-107); Globulin 2.9 g/dL (1.3-4.6); Glomerular Filtration Rate 83.7 mL/min (90-130); Glucose 97 mg/dL (65-115); Osmolality Calculated 296 mOsm/kg (285-295); Potassium 4.9 mmol/L (3.5-5.1); Sodium 143 mmol/L (136-145); Total Bilirubin 0.3 mg/dL (0.15-1.2)
[2023-11-23 16:56] LABS: Free T4 Free Thyroxine 1.12 ng/dL (0.82-1.77)
== END 2023-12-14 23:59 | disposition home or self-care (01) ==
PROVIDERS: Nurse Practitioner Family; PCP Family Medicine; Visit Provider Internal Medicine Hematology & Oncology
DX: C50.812 Malignant neoplasm of overlapping sites of left female breast (principal); Z17.0 Estrogen receptor positive status [ER+]; Z79.818 Long term (current) use of other agents affecting estrogen receptors and estrogen levels; Z79.899 Other long term (current) drug therapy; Z87.891 Personal history of nicotine dependence; Z92.3 Personal history of irradiation; Z78.0 Asymptomatic menopausal state; Z80.3 Family history of malignant neoplasm of breast; Z53.9 Procedure and treatment not carried out, unspecified reason
CPT/HCPCS: 36415; 80053; 84439; 84443; 85025; 99214

== ENCOUNTER 2024-05-23 11:09 | Oncology outpatient (recurring) (ONCR) | payer MEDICARE, SELFPAY ==
[2024-05-23 11:24] LABS: Basophils % 0.3 %; Eosinophils # 0.1 10^3/uL (0.0-0.8); Eosinophils % 1.5 %; Hematocrit 48.1 % (36-47); Lymphocytes # 1.9 10^3/uL (0.8-4.8); Lymphocytes % 31.4 %; Mean Corpuscular HGB Conc 32.8 g/dL (30-55); Mean Corpuscular Hemoglobin 30.6 pg (27-33); Mean Corpuscular Volume 93.2 fl (85-98); Monocytes # 0.5 10^3/uL (0.2-0.9); Monocytes % 7.6 %; Neutrophils # 3.48 10^3/uL (1.8-7.7); Neutrophils % 58.7 %; Nucleated Red Blood Cells % 0 %; Platelet Count 176 10^3/cmm (157-399); Red Blood Count 5.16 10^6/uL (3.85-5.65); Red Cell Distribution Width 12.7 % (12.1-15.1); White Blood Count 5.93 10^3/uL (3.29-11.43)
[2024-05-23 11:49] LABS: Alanine Aminotransferase 29 U/L (0-33); Albumin Level 4.3 g/dL (3.5-5.2); Alkaline Phosphatase 111 U/L (35-105); Anion Gap 15.4 (5-19); Aspartate Amino Transferase 24 U/L (0-32); Blood Urea Nitrogen 14 mg/dL (8-23); Calcium 9.6 mg/dL (8.5-10.5); Carbon Dioxide 29 mmol/L (22-29); Chloride 105 mmol/L (98-107); Globulin 2.4 g/dL (1.3-4.6); Glomerular Filtration Rate 62.5 mL/min (90-130); Glucose 115 mg/dL (65-115); Osmolality Calculated 301 mOsm/kg (285-295); Potassium 4.4 mmol/L (3.5-5.1); Sodium 145 mmol/L (136-145); Total Bilirubin 0.5 mg/dL (0.15-1.2); Total Protein 6.7 g/dL (6.6-8.7)
== END 2024-06-13 23:59 | disposition home or self-care (01) ==
PROVIDERS: Nurse Practitioner Family; PCP Family Medicine; Visit Provider Internal Medicine Hematology & Oncology
DX: C50.812 Malignant neoplasm of overlapping sites of left female breast (principal); Z17.0 Estrogen receptor positive status [ER+]; Z79.899 Other long term (current) drug therapy; Z87.891 Personal history of nicotine dependence; Z92.3 Personal history of irradiation; Z78.0 Asymptomatic menopausal state; Z80.3 Family history of malignant neoplasm of breast; Z53.9 Procedure and treatment not carried out, unspecified reason; Z79.811 Long term (current) use of aromatase inhibitors
CPT/HCPCS: 36415; 80053; 85025; 99214

== ENCOUNTER 2024-11-05 09:52 | Outpatient (CLI) | payer MEDICARE, SELFPAY ==
--- NOTE | 2024-11-05 13:00 | MM_ITS ---
WS: [id number] DIAGNOSTIC BILATERAL DIGITAL BREAST TOMOSYNTHESIS MAMMOGRAPHY WITH CAD HISTORY: surveillance COMPARISON: 11/02/2023, 10/26/2022, 03/12/2020 TECHNIQUE: Bilateral craniocaudad, mediolateral oblique, and mediolateral views are submitted with to moskhurram and SM. Computer aided detection utilized. Breast composition: There are scattered areas of fibroglandular density. Lumpectomy site in the posterior LEFT breast is reidentified. No recurrent mass identified. Benign sc attered calcifications in each breast. MM/MM diag BI tomosynthesis [id number] IMPRESSION: BI-RADS: 2 - Benign. FOLLOW UP: 1 Year Follow-up
== END 2024-11-05 09:53 | disposition home or self-care (01) ==
LOC: RAD 09:53
PROVIDERS: PCP Family Medicine; Visit Provider Nurse Practitioner Family
DX: C50.112 Malignant neoplasm of central portion of left female breast (principal); R92.323 Mammographic fibroglandular density, bilateral breasts
CPT/HCPCS: 77062; G0279

== ENCOUNTER 2024-11-21 11:01 | Oncology outpatient (recurring) (ONCR) | payer MEDICARE, SELFPAY ==
[2024-11-21 11:16] LABS: Basophils % 0.4 %; Eosinophils # 0.1 10^3/uL (0.0-0.8); Eosinophils % 1.4 %; Hematocrit 48.3 % (36-47); Lymphocytes # 2.5 10^3/uL (0.8-4.8); Lymphocytes % 34.7 %; Mean Corpuscular HGB Conc 32.3 g/dL (30-55); Mean Corpuscular Hemoglobin 29.9 pg (27-33); Mean Corpuscular Volume 92.5 fl (85-98); Monocytes # 0.6 10^3/uL (0.2-0.9); Neutrophils # 3.88 10^3/uL (1.8-7.7); Neutrophils % 54.2 %; Nucleated Red Blood Cells % 0 %; Platelet Count 178 10^3/cmm (157-399); Red Blood Count 5.22 10^6/uL (3.85-5.65); Red Cell Distribution Width 12.5 % (12.1-15.1); White Blood Count 7.15 10^3/uL (3.29-11.43)
[2024-11-21 11:34] LABS: Alanine Aminotransferase 23 U/L (0-33); Albumin Level 4.1 g/dL (3.5-5.2); Alkaline Phosphatase 127 U/L (35-105); Anion Gap 14.1 (5-19); Aspartate Amino Transferase 17 U/L (0-32); Blood Urea Nitrogen 16 mg/dL (8-23); Calcium 9.9 mg/dL (8.5-10.5); Carbon Dioxide 29 mmol/L (22-29); Chloride 102 mmol/L (98-107); Globulin 2.3 g/dL (1.3-4.6); Glomerular Filtration Rate 71.5 mL/min (90-130); Glucose 135 mg/dL (65-115); Osmolality Calculated 295 mOsm/kg (285-295); Potassium 4.1 mmol/L (3.5-5.1); Sodium 141 mmol/L (136-145); Total Bilirubin 0.2 mg/dL (0.15-1.2); Total Protein 6.4 g/dL (6.6-8.7)
[2024-11-21 13:33] LABS: Magnesium 2.1 mg/dL (1.7-2.3)
== END 2024-12-14 23:59 | disposition home or self-care (01) ==
PROVIDERS: Nurse Practitioner Family; PCP Family Medicine; Visit Provider Internal Medicine
DX: C50.812 Malignant neoplasm of overlapping sites of left female breast (principal); M62.838 Other muscle spasm; Z17.0 Estrogen receptor positive status [ER+]; Z79.811 Long term (current) use of aromatase inhibitors; Z79.899 Other long term (current) drug therapy; Z87.891 Personal history of nicotine dependence; Z92.3 Personal history of irradiation; Z78.0 Asymptomatic menopausal state; Z80.3 Family history of malignant neoplasm of breast
CPT/HCPCS: 36415; 80053; 83735; 85025; 99214

== ENCOUNTER 2025-05-22 11:00 | Oncology outpatient (recurring) (ONCR) | payer MEDICARE, SELFPAY ==
[2025-05-22 11:26] LABS: Hematocrit 48.8 % (36-47); Hemoglobin 15.80 g/dL (11.27-16.99); Mean Corpuscular HGB Conc 32.4 g/dL (30-55); Mean Corpuscular Hemoglobin 29.9 pg (27-33); Mean Corpuscular Volume 92.2 fl (85-98); Nucleated Red Blood Cells % 0 %; Platelet Count 171 10^3/cmm (157-399); Red Blood Count 5.29 10^6/uL (3.85-5.65); White Blood Count 6.92 10^3/uL (3.29-11.43)
[2025-05-22 11:43] LABS: Alanine Aminotransferase 32 U/L (0-33); Albumin Level 4.2 g/dL (3.5-5.2); Alkaline Phosphatase 116 U/L (35-105); Anion Gap 16.3 (5-19); Aspartate Amino Transferase 24 U/L (0-32); Blood Urea Nitrogen 11 mg/dL (8-23); Calcium 9.6 mg/dL (8.5-10.5); Carbon Dioxide 27 mmol/L (22-29); Chloride 104 mmol/L (98-107); Globulin 2.6 g/dL (1.3-4.6); Glucose 107 mg/dL (65-115); Magnesium 2.1 mg/dL (1.7-2.3); Osmolality Calculated 296 mOsm/kg (285-295); Potassium 4.3 mmol/L (3.5-5.1); Sodium 143 mmol/L (136-145); Total Protein 6.8 g/dL (6.6-8.7)
== END 2025-06-13 23:59 | disposition home or self-care (01) ==
PROVIDERS: PCP Family Medicine; Visit Provider Nurse Practitioner Family
DX: C50.812 Malignant neoplasm of overlapping sites of left female breast (principal); Z17.0 Estrogen receptor positive status [ER+]; R03.0 Elevated blood-pressure reading, without diagnosis of hypertension; Z87.891 Personal history of nicotine dependence; Z79.811 Long term (current) use of aromatase inhibitors
CPT/HCPCS: 36415; 80053; 83735; 85025; 99214

== ENCOUNTER 2025-06-11 11:14 | Outpatient (CLI) | payer MEDICARE, SELFPAY ==
--- NOTE | 2025-06-11 11:20 | MM_ITS ---
WS: [id number] DIAGNOSTIC RIGHT DIGITAL BREAST TOMOSYNTHESIS MAMMOGRAPHY WITH CAD RIGHT BREAST ULTRASOUND, LIMITED HISTORY: pebble lesions at right medial breast COMPARISON: 11/05/2024, 11/02/2023 and 10/26/2022 Breast composition: There are scattered areas of fibroglandular density. Triangular marker is placed along the medial RIGHT breast near 3:00. There is no underlying mass identified. No distortion. No skin thickening. RIGHT breast ultrasound, limited. Ultrasound directed along the medial RIGHT breast near 2-3 o'clock. No mass identified. There is no distortion or shadowing. MM/MM diag RT tomosynthesis [id number] IMPRESSION: BI-RADS: 2 - Benign. FOLLOW UP: 1 Year Follow-up No ultrasound or mammographic abnormality RIGHT breast associated with the palp able nodule.
--- NOTE | 2025-06-11 14:00 | XR_ITS ---
WS: [id number] SCREENING DEXA SCAN [employer] CLINICAL INFORMATION: post menopausal Comparison 2022 FINDINGS: The L1-L4 bone mineral density measures 0.923 g/cm2. This corresponds to a T score score of -2.1 and Z score of -1.1. Left femoral neck bone mineral density measures 0.784 g/cm2. This corresponds to a T score of -1.8 and Z score of -0.8. Right femoral neck bone mineral density measures 0.870 g/cm2. This corresponds to a T score -1.1of and Z score of -0.1. Mean femoral neck bone mineral density measures 0.827 g/cm2. This corresponds to a T score of -1.4 and Z score of -0.5. XR/XR DEXA axial skeleton* [id number] IMPRESSION: Osteopenia lumbar spine. Osteopenia femoral necks. Patient's FRAX calculated 10 year probability for major osteoporotic fracture i s 11.6% and osteoporotic hip fracture is 2.1%. Bone mineral density lumbar spine increased 0.2% Bone density femoral necks decreased -1.8%
== END 2025-06-11 11:15 | disposition home or self-care (01) ==
LOC: RAD 11:15
PROVIDERS: Visit Provider Nurse Practitioner Family
DX: N64.59 Other signs and symptoms in breast (principal); Z79.811 Long term (current) use of aromatase inhibitors; M85.89 Other specified disorders of bone density and structure, multiple sites; R92.323 Mammographic fibroglandular density, bilateral breasts; R92.8 Other abnormal and inconclusive findings on diagnostic imaging of breast; N63.10 Unspecified lump in the right breast, unspecified quadrant
CPT/HCPCS: 76642; 77061; 77080; 81000; 87086; G0279

== ENCOUNTER → 2025-08-02 12:23 | Outpatient (BNVA) | payer MEDICARE, SELFPAY | PROVIDERS: PCP Family Medicine; Visit Provider Family Medicine | DX: Z00.00 Encounter for general adult medical examination without abnormal findings (principal); Z13.6 Encounter for screening for cardiovascular disorders; Z11.59 Encounter for screening for other viral diseases; R73.01 Impaired fasting glucose | CPT/HCPCS: 80061; 83036; 86803 ==

== ENCOUNTER → 2025-09-20 08:57 | Outpatient (BNVA) | payer MEDICARE, SELFPAY | PROVIDERS: PCP Family Medicine; Visit Provider Student in an Organized Health Care Education/Training Program | DX: Z12.11 Encounter for screening for malignant neoplasm of colon (principal); R03.0 Elevated blood-pressure reading, without diagnosis of hypertension | CPT/HCPCS: 99204 ==

== ENCOUNTER 2025-10-08 07:53 | Day surgery (SDC) | payer MEDICARE, SELFPAY ==
[2025-10-08 08:10] VITALS: BP 145/91; PULSE 92; RESP 17; TEMP 36.3; O2SAT 95
--- NOTE | 2025-10-08 08:15 | ANES.PREANE2 ---
Pre-Anesthetic Assessment Height/Weight: Height 1.65 m Temp Pulse Resp BP Pulse Ox O2 Del Method 97.4 F L 92 17 145/91 95 Room Air 10/08/25 08:10 10/08/25 08:10 10/08/25 08:10 10/08/25 08:10 10/08/25 08:10 10/08/25 08:10 Operation Date: 10/08/25 09:15 Proposed Procedures p Colonoscopy 96263 G0121 Z12.11(Not Applicable) - Rom Diego MD Familial anesthetic complications: none Was Beta Dali taken within 24 hours: N/A Was Clonidine taken within 24 hours: N/A Last intake: Intake Last Liquid Date 10/07/25 Last Liquid Time 23:45 Last Solid Date 10/06/25 Last Solid Time 18:30 Last Intake: 23:45 Social No alcohol and No tobacco Exam alert, oriented x 3, clear to auscultation bilaterally and regular rate & rhythm Airway Submandibular: within normal limits Cervical ROM: within normal limits Mallampati: Class III Dentition: partials Comments: Comments: implants on bottom Pulmonary None reported snores CV/HEM None reported None reported Hepatic None reported GI None reported Metabolic None reported Musc/skel None reported Neuropsych None reported Anesthetic Plan ASA status: 2 Anesthesia: Anesthesia Evaluation and MAC Risk of > 500 ml blood loss (7ml/kg in children): No Medications/Allergies Home Medications ?Medication ?Instructions ?Recorded ?Confirmed ?Last Taken ?Type anastrozole 1 mg tablet 1 mg PO BEDTIME 10/03/25 10/08/25 10/06/25 History calcium carbonate (Calcium 600) 600 mg PO DAILY 10/03/25 10/08/25 10/05/25 History [id number] ac 400 1 tab PO DAILY 10/03/25 10/08/25 10/06/25 History mcg-calcium carb 500 mg-vit K1 20 mcg tablet (Women's 50 Plus Daily Formula) Allergies Allergy/AdvReac Type Severity Reaction Status Date / Time No Known Allergies Allergy Verified 10/08/25 08:05 [facility] Anesthesia Medical History Hyperlipidemia, mixed Prediabetes DJD (degenerative joint disease), lumbar Elevated blood pressure reading without diagnosis of hypertension DDD (degenerative disc disease), lumbar Osteoarthritis of left knee Nicotine dependence, cigarettes, in remission quit 2002 Osteoarthritis Breast cancer L lumpectomy, 16rounds radiation; Surgical History History of breast biopsy left History of removal of cyst From back of head - 2006 History of lumpectomy of left breast for breast cancer Family History Father CAD (coronary artery disease) Diabetes Type 2 Lung disease Sister Cancer breast Mother Dementia Hypertension Stroke Denies family history of Clotting disorder Hyperlipidemia Psychiatric illness Chronic kidney disease (CKD) Suicide Anesthesia complication Bleeding disorder Social History Smoking and tobacco/nicotine status: former use of tobacco/nicotine Quit status (tobacco/nicotine): has quit using Year quit tobacco: 2002 Former quit date comment: smoked x 15+ years Alcohol intake: current Alcohol intake frequency: holidays/special occasions only Substance/Drug Use: never Household members: significant other Marital status: Life Partner Number of children: 0 Highest education level completed: High School Graduate Current occupational status: retired Previous occupational history: food and beverage service manager/[employer]
[2025-10-08 08:20] VITALS: BMI 29.6
--- NOTE | 2025-10-08 08:24 | W.PM.OPSUD ---
Surgery/Procedure H&P Update DATE OF PROCEDURE: October 08, 2025 DATE H&P PERFORMED: 09/20/25 H&P UPDATE INFORMATION: I have reviewed H&P completed within last 30 days, I have examined patient prior to procedure, No changes to prior documentation and Risks and benefits of the procedure reviewed PLANNED PROCEDURE: Operation Date: 10/08/25 09:15 Proposed Procedures p Colonoscopy [id number] G0121 Z12.11(Not Applicable) - Rom Diego MD
[2025-10-08 08:51] VITALS: BP 113/53; PULSE 66; RESP 16; TEMP 36.3; O2SAT 95
[2025-10-08 09:02] VITALS: BP 130/59; PULSE 68; RESP 16; O2SAT 96
--- NOTE | 2025-10-08 09:15 | ANE.PACU2 ---
Inpatient post-anesthesia follow up: Airway intact: Yes Vital signs: Temperature 97.4 F Pulse Rate 68 Respiratory Rate 16 Blood Pressure 130/59 Pulse Oximetry 96 Oxygen Delivery Me thod Room Air Oxygen Flow Rate Fraction of Inspir ed Oxygen Hydration adequate: Yes Nausea and vomiting: No Pain level: 1 Mental status: Baseline
== END 2025-10-08 09:19 | disposition home or self-care (01) ==
PROVIDERS: PCP Family Medicine; Visit Provider Student in an Organized Health Care Education/Training Program
PROC: 0DJD8ZZ Inspection of Lower Intestinal Tract, Via Natural or Artificial Opening Endoscopic (ICD-10-PCS; CPT 45378; principal; 2025-10-08 09:15)
DX: Z12.11 Encounter for screening for malignant neoplasm of colon (principal); K63.5 Polyp of colon; D12.8 Benign neoplasm of rectum; E78.2 Mixed hyperlipidemia; R73.03 Prediabetes; Z85.3 Personal history of malignant neoplasm of breast; Z80.3 Family history of malignant neoplasm of breast; Z87.891 Personal history of nicotine dependence
CPT/HCPCS: 45380; 88305; J2704; J7030

== ENCOUNTER → 2025-10-21 10:15 | Outpatient (BNVA) | payer MEDICARE, SELFPAY | PROVIDERS: PCP Family Medicine; Visit Provider Student in an Organized Health Care Education/Training Program | DX: Z51.89 Encounter for other specified aftercare (principal); R03.0 Elevated blood-pressure reading, without diagnosis of hypertension | CPT/HCPCS: 99213 ==